=== PATIENT | female | born 2000 | race Caucasian/White ===

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

== ENCOUNTER 2023-08-01 06:30 | Inpatient (IN) | payer BC ==
[~2023-08-01] VITALS: Ht 156.2 cm; Wt 115.2 kg
[~2023-08-01 06:30] MED LIST changes: +BENADRYL ALLERG25 MG PO; +CLARITIN10 MG PO; +SKYRIZI150 MG/1 M SUB-Q; +TAMIFLU75 MG PO
[2023-08-01 10:07] LABS: AMNISURE ROM TEST POSITIVE
[2023-08-01] MEDS ORDERED: OXYTOCIN/DEXTROSE 5% 20 UNITS/100 ML BAG IV SCH (10:30)
[2023-08-01] MEDS ORDERED: MAGNESIUM HYDROXIDE/AL HYDROX 30 ML CUP PO PRN (10:30)
[2023-08-01] MEDS ORDERED: CALCIUM CARBONATE 500 MG CHEW PO PRN (10:30)
[2023-08-01] MEDS ORDERED: LACTATED RINGER'S 1,000 ML IV PRN (10:30)
[2023-08-01 10:51] LABS: HEMATOCRIT 40.6 % (35.0-50.0); HEMOGLOBIN 13.6 g/dL (12.0-18.0); MCH 29.5 (27-36); MCHC 33.4 g/dl (30-36); MCV 88.2 fl (81-99); RBC 4.6 M/ul (4.3-5.7); RDW 13.2 (10.5-15.0)
[2023-08-01 11:07] VITALS: BP 122/74
[2023-08-01 11:11] LABS: AMPHETAMINES, URINE NEGATIVE (NEGATIVE); BARBITURATES, URINE NEGATIVE (NEGATIVE); BENZODIAZEPINE, URINE NEGATIVE (NEGATIVE); BUPRENORPHINE, URINE NEGATIVE (NEGATIVE); CANNABINOID, URINE POSITIVE (NEGATIVE); COCAINE, URINE NEGATIVE (NEGATIVE); ECSTASY, URINE NEGATIVE (NEGATIVE); FENTANYL, URINE NEGATIVE (NEGATIVE); METHADONE, URINE NEGATIVE (NEGATIVE); OPIATES, URINE NEGATIVE (NEGATIVE); OXYCODONE, URINE NEGATIVE (NEGATIVE); PHENCYCLIDINE, URINE NEGATIVE (NEGATIVE)
[2023-08-01 11:24] LABS: ABO O; RH POSITIVE
[2023-08-01 11:25] LABS: ANTIBODY SCREEN NEGATIVE
[2023-08-01] MEDS ORDERED: ROPIVACAINE 0.2% 200 ML BAG ONE (12:23)
[2023-08-01] MEDS ORDERED: LACTATED RINGER'S 500 ML IV PRN (13:15)
[2023-08-01] MEDS ORDERED: ePHEDrine sulfate 5 MG/ML SYRINGE IV PRN (13:15)
[2023-08-01] MEDS ORDERED: ROPIVACAINE 0.2% 200 ML BAG EPIDURAL SCH (13:15)
[2023-08-01] MEDS ORDERED: LACTATED RINGER'S 2,000 ML IV ONE (13:15)
--- NOTE | 2023-08-01 14:22 | PR ---
[facility] [address] [facility] [place] [address] Signed Progress Notes IP Datetime Report Generated by RAMBO: 08/01/2023 14:22 PROGRESS NOTES: [id number] Impression: Non-reassuring Heart Rate Procedures: Intrauterine Pressure Catheter; Scalp Electrode Plan: Continue Present Management VITAL SIGNS: [id number] Vital Signs: Reviewed; Within Normal Limits EXAM: [id number] Dilatation: 4.0 Effacement: 80 Station: -2 Contractions: not picking up well MEMBRANES: [id number] Amniotic Fluid Color: Clear Comments: Comfortable after epidural. Frequent lates and difficult to monitor contractions. IUP and FSE placed. Will continue top closely monitor as it is unclear if baby will tolerate the contractions needed for progress. FETUS A: [id number] FHR Baseline: 140 Variability: Moderate 6-25bpm Accelerations: 15X15 Decelerations: Late FHR Category: Category II Presentation: Vertex Comments on Fetus A: No sign of metabolic acidosis FETUS B: [id number] Signing Physician: Susan Rahman MD Copies: ~ *Electronically Signed* 08/01/23 1422 SUSAN RAHMAN MD PATIENT NAME: DEVIN CUNNINGHAM PROGRESS NOTE DATE OF : 98 PHYSICIAN: SUSAN RAHMAN MD RPT #: [id number] REPORT IS CONFIDENTIAL AND NOT TO BE RELEASED WITHOUT AUTHORIZATION
--- NOTE | 2023-08-01 14:28 | PR ---
[facility] [address] [facility] [place], [place] [address] Signed Progress Notes IP Datetime Report Generated by CPRocío: 08/01/2023 14:28 PROGRESS NOTES: [id number] Impression: Reassuring Heart Rate Procedures: Intrauterine Pressure Catheter; Scalp Electrode Plan: Augmentation VITAL SIGNS: [id number] Vital Signs: Reviewed; Within Normal Limits EXAM: [id number] Dilatation: 4.0 Effacement: 80 Station: -2 Contractions: not picking up well MEMBRANES: [id number] Amniotic Fluid Color: Clear Comments: Baby doing better in current position but contractions inadequate. Will try low dose pitocin and see how baby tolerates the stronger contractions. Delivery route uncertain at this time. FETUS A: [id number] FHR Baseline: 140 Variability: Moderate 6-25bpm Accelerations: 15X15 Decelerations: Variable FHR Category: Category II Presentation: Vertex Comments on Fetus A: No sign of metabolic acidosis FETUS B: [id number] Signing Physician: Susan Rahman MD Copies: ~ *Electronically Signed* 08/01/23 1428 SUSAN RAHMAN MD PATIENT NAME: DEVIN CUNNINGHAM PROGRESS NOTE DATE OF : 98 PHYSICIAN: SUSAN RAHMAN MD RPT #: [id number] REPORT IS CONFIDENTIAL AND NOT TO BE RELEASED WITHOUT AUTHORIZATION
[2023-08-01] MEDS ORDERED: OXYTOCIN/0.9 % SODIUM CHLORIDE 500 ML IV SCH ×2 (14:30→17:00)
[2023-08-01] MEDS ORDERED: LIDOCAINE HCL 2% 5 ML SDV ONE (15:09)
[2023-08-01] MEDS ORDERED: SODIUM CHLORIDE 0.9% 20 ML IV ONE ×2 (15:09→15:37)
[2023-08-01] MEDS ORDERED: dexmedeTOMIDine HCl 200 MCG/2 ML VIAL ONE (15:09)
[2023-08-01] MEDS ORDERED: SOD+POT BICARB/CITRIC ACID 2 EA TABLET.EFF PO ONE (15:30)
[2023-08-01] MEDS ORDERED: CEFAZOLIN SODIUM 3 GM/30 ML SYR IV SCH (15:31)
[2023-08-01] MEDS ORDERED: OXYTOCIN 10 UNITS/ML VIAL ONE (15:31)
[2023-08-01] MEDS ORDERED: MORPHINE SULFATE 1 MG/ML VIAL ONE (15:34)
[2023-08-01] MEDS ORDERED: PHENYLEPHRINE HCL 10 MG/ML VIAL ONE (15:36)
[2023-08-01] MEDS ORDERED: ePHEDrine sulfate 50 MG/ML AMP ONE (15:36)
[2023-08-01] MEDS ORDERED: fentaNYL citrate 100 MCG/2 ML VIAL ONE (15:36)
[2023-08-01] MEDS ORDERED: TERBUTALINE SULFATE 1 MG/ML AMP SUB-Q ONE (15:45)
[2023-08-01] MEDS ORDERED: CEFAZOLIN SOD 1,000 MG/10 ML VIAL ONE (15:55)
[2023-08-01] MEDS ORDERED: TRANEXAMIC ACID IN NACL,ISO-OS 100 ML IV ONE (15:55)
[2023-08-01] MEDS ORDERED: DEXAMETHASONE SOD PHOS 4 MG/ML VIAL ONE (16:01)
[2023-08-01] MEDS ORDERED: ondansetron HCL 4 MG/2 ML VIAL ONE (16:01)
[2023-08-01] MEDS ORDERED: LACTATED RINGER'S 1,000 ML IV ONE (16:46)
[2023-08-01] MEDS ORDERED: TRANEXAMIC ACID 1,000 MG/10 ML AMP ONE (16:59)
[2023-08-01] MEDS ORDERED: CEPHALEXIN MONOHYDRATE 500 MG CAP PO SCH (17:00)
[2023-08-01] MEDS ORDERED: METOCLOPRAMIDE HCL 10 MG/2 ML SDV IV PRN (17:00)
[2023-08-01] MEDS ORDERED: PROCHLORPERAZINE EDISYLATE 10 MG/2 ML VIAL IV PRN (17:00)
[2023-08-01] MEDS ORDERED: PROMETHAZINE HCL 25 MG TAB PO PRN (17:00)
[2023-08-01] MEDS ORDERED: bisacodyL 10 MG SUPP PR PRN (17:00)
[2023-08-01] MEDS ORDERED: PROMETHAZINE HCL 25 MG SUPP PR PRN (17:00)
[2023-08-01] MEDS ORDERED: ondansetron HCL 4 MG/2 ML VIAL IV PRN ×3 (17:00→17:30)
[2023-08-01] MEDS ORDERED: LIDOCAINE 2% VISCOUS 6 ML SYR TOP ONE (17:00)
[2023-08-01] MEDS ORDERED: OXYCODONE HCL 5 MG TAB PO PRN (17:00)
[2023-08-01] MEDS ORDERED: LACTATED RINGER'S 1,000 ML IV SCH (17:04)
[2023-08-01] MEDS ORDERED: propofoL 200 MG/20 ML VIAL ONE (17:05)
[2023-08-01] MEDS ORDERED: diphenhydrAMINE HCL 50 MG/ML VIAL IV PRN ×2 (17:30)
[2023-08-01] MEDS ORDERED: IBLOOD GLUCOSE TEST STRIP 1 EA TEST VI PRN (17:30)
[2023-08-01] MEDS ORDERED: NALOXONE HCL 0.4 MG SYR IV PRN ×2 (17:30)
[2023-08-01] MEDS ORDERED: droPERidol 5 MG/2 ML VIAL IV PRN (17:30)
[2023-08-01] MEDS ORDERED: HYDROmorphone HCL 1 MG/ML SYR IV PRN (17:30)
[2023-08-01] MEDS ORDERED: fentaNYL citrate 50 MCG/ML SDV IV PRN (17:30)
[2023-08-01] MEDS ORDERED: MORPHINE SULFATE 4 MG/ML VIAL IV PRN (17:30)
[2023-08-01 17:33] LABS: BASOPHILS 0.1 % (0-2); HEMATOCRIT 37.2 % (35.0-50.0); HEMOGLOBIN 12.2 g/dL (12.0-18.0); LYMPHOCYTES 5.3 % (24-44); MCH 29.5 (27-36); MCHC 32.9 g/dl (30-36); MCV 89.6 fl (81-99); MONOCYTES 4.1 % (0-12); NEUTROPHILS 90.5 % (39-80); PLATELET COUNT 223 K/uL (140-440); RBC 4.15 M/ul (4.3-5.7); RDW 13.5 (10.5-15.0)
[2023-08-01 17:50] VITALS: BP 117/55
--- NOTE | 2023-08-01 17:57 | NUR ---
08/01/23 1757 Gerri Jiang 170Benji PT ARRIVED TO ROOM 101 WITH FBC RN AND FAMILY AT BEDSIDE. PT SHAKING AND HR 125-135. LACE FINISHER AWARE. PT DENEIS CONCERNS SUCH PAIN OR NAUSEA. IV IN LEFT WRIST AND INFUSING LR WITH 20 PIT AND SITE WNL. 1715 MD AWARE OF HR AND LABS ORDERED. HOB INCREASED SLIGHTLY. PT CONTINUES TO DENY CONCERNS. 1720 LAB AT BEDSIDE. PT SIPPING SMALL AMOUNT OF WATER. PT DENIES HOLDING BABY "I AM TOO SHAKEY." EDUCATION GIVEN ON MEDICATION AND SHAKING SIDE AFFECT. 1735 REPORT TO FBC RN. PT HR SLOW STARTING TO DECREASE AND SHAKING HAS DECREASED. BED PLUGGED IN AND BABY TO CHEST WITH FBC RN. ALL QUESTIONS ANSWERED.
[2023-08-01] MEDS ORDERED: SIMETHICONE 125 MG TABLET CHEWABLE PO SCH (21:00)
[2023-08-01] MEDS ORDERED: ACETAMINOPHEN 500 MG TAB PO SCH ×3 (21:00→22:00)
[2023-08-01] MEDS ORDERED: SENNOSIDES/DOCUSATE 1 EA TAB PO SCH (21:00)
[2023-08-01] MEDS ORDERED: metroNIDAZOLE 250 MG TAB PO SCH (21:00)
[2023-08-01] MEDS ORDERED: KETOROLAC TROMETHAMINE 30 MG/ML VIAL IV SCH (22:00)
[2023-08-01] MEDS ORDERED: IBUPROFEN 800 MG TAB PO SCH (22:00)
[2023-08-02] MEDS ORDERED: KETOROLAC TROMETHAMINE 30 MG/ML VIAL IV SCH (01:00)
[2023-08-02 06:12] LABS: HEMATOCRIT 32.2 % (35.0-50.0); HEMOGLOBIN 10.9 g/dL (12.0-18.0); MCH 29.9 (27-36); MCHC 33.8 g/dl (30-36); MCV 88.4 fl (81-99); RBC 3.64 M/ul (4.3-5.7); RDW 13.4 (10.5-15.0)
[2023-08-02] MEDS ORDERED: ENOXAPARIN SODIUM 40 MG/0.4 ML SYR SUB-Q SCH (09:00)
[2023-08-02] MEDS ORDERED: TRANEXAMIC ACID IN NACL,ISO-OS 1,000 MG/100 ML PIGGYBACK IV ONE (10:30)
--- NOTE | 2023-08-02 11:13 | PR ---
[facility] [address] [place], [place] [address] Signed PP Progress Notes Datetime Report Generated by RAMBO: 08/02/2023 11:13 SUBJECTIVE: [id number] Pain: Within Normal Limits Nausea/Vomiting: Denies Flatus: Yes Bowel Movement: Yes Vital Signs: [id number] Vital Signs: Reviewed; Within Normal Limits Cardiovascular: Not Done Respiratory: Not Done Abdomen/Uterus: Normal Lochia: Normal Vulva/Perineum: Not Done Breasts: Not Done CVA Tenderness: Not Done Extremities: Normal Incision: Normal Progress: Normal IMPRESSION/PLAN/PROCEDURES: [id number] Impression: Normal Progression Plan: Continue Present Management Procedures: None Progress Notes: S: 22 yo s/p primary section. POD/PPD#1. Doing well. Denies CLINTON, CP, SOB, F/C, N/V, RUQ pain, changes in vision, vaginal discharge. Tolerating regular diet, ambulating, pain controlled. Bnada removed this morning not long ago. Has not yet voided on own. O: AFVSS Abd: Soft. Non-distended. Fundus firm. Incision C/I. Normal amount of drainage. Vikas in place. Musc: FERRARI. No C/C/E. A/P: 22 yo s/p primary section. POD/PPD#1. Doing well. Will continue /postop care. Assess voiding ability and if no void after 4-6 hours, bladder scan with potential straight cath. Disposition in house. Signing Physician: Giovany Luna MD *Electronically Signed* 08/02/23 1113 GIOVANY LUNA MD PATIENT NAME: DELMAPALOMODEVINCHEIKH GARVIN PROGRESS NOTE DATE OF : 98 PHYSICIAN: GIOVANY LUNA MD RPT #: [id number] REPORT IS CONFIDENTIAL AND NOT TO BE RELEASED WITHOUT AUTHORIZATION
[2023-08-03] MEDS ORDERED: IBUPROFEN 800 MG TAB PO SCH ×2 (01:00→06:00)
--- NOTE | 2023-08-03 08:32 | PR ---
[facility] [address] [facility] [place], [place] [address] Signed PP Progress Notes Datetime Report Generated by RAMBO: 08/03/2023 08:32 SUBJECTIVE: [id number] Pain: Within Normal Limits Nausea/Vomiting: Denies Flatus: Yes Bowel Movement: Yes Vital Signs: [id number] Vital Signs: Reviewed; Within Normal Limits Cardiovascular: Normal Respiratory: Not Done Abdomen/Uterus: Abnormal Lochia: Normal Vulva/Perineum: Not Done Breasts: Not Done CVA Tenderness: Not Done Extremities: Normal Incision: Normal Progress: Normal Exam Comments: Fundus firm, NT @ U-2. IMPRESSION/PLAN/PROCEDURES: [id number] Impression: Normal Progression Plan: Discharge Procedures: None Progress Notes: Doing well. She is ready for D/C. Signing Physician: Susan Rahman MD Copies: ~ *Electronically Signed* 08/03/23831 SUSAN RAHMAN MD PATIENT NAME: DEVIN CUNNINGHAM PROGRESS NOTE DATE OF : 98 PHYSICIAN: SUSAN RAHMAN MD RPT #: [id number] REPORT IS CONFIDENTIAL AND NOT TO BE RELEASED WITHOUT AUTHORIZATION
--- NOTE | 2023-08-10 07:36 | OR ---
[facility] [address] [place], [place] [address] Signed DATE OF OPERATION: 08/01/2023 SURGEON: Susan Rahman MD SCREEN REPAIRER CRUSHER: Giovany Luna PREOPERATIVE DIAGNOSIS: Non-reassuring status. POSTOPERATIVE DIAGNOSIS: Non-reassuring status. PROCEDURE: Primary section, low segment transverse uterine incision. ANESTHESIA: Spinal. ESTIMATED BLOOD LOSS: 700 mL. DRAINS: Banda catheter. INDICATIONS AND FINDINGS: The patient is a 22-year-old female 2, para 0, AB 1, who was admitted at 38 and 1/7th weeks in early active labor with spontaneous rupture of membranes. She had clear fluid at rupture. She progressed to 4 cm, but unfortunately developed recurrent late decelerations as well as prolonged deceleration despite multiple position changes. Because of this, she was counseled and taken to the operating room for a primary section. She was delivered of a little girl via lower segment transverse uterine incision with Apgars of 8 and 9 and weight of 6 pounds 5 ounces. The baby was ROP. The uterus, tubes, ovaries, and placenta appeared normal. There was a cord at the ear level on the baby. PROCEDURE IN DETAIL: The patient was prepped and draped in the supine position. A Pfannenstiel skin incision was made, carried down through the fascia. The incision was extended laterally. The inferior and superior fascial flaps were then created. The muscles were bluntly Electronically Signed By: SUSAN RAHMAN MD 08/10/23 0736 PATIENT NAME: DEVIN CUNNINGHAM OPERATIVE REPORT DATE OF : 98 REPORT #: [id number] PHYSICIAN: SUSAN RAHMAN MD PCP: TISH ARENAS REPORT IS CONFIDENTIAL AND NOT TO BE RELEASED WITHOUT AUTHORIZATION [facility] [address] [place], [place] [address] Signed divided. The peritoneum opened bluntly and the incision extended bluntly. The Keyur retractor was placed. The uterine incision was made at the upper aspect of the peritoneal reflection. The incision was extended bluntly. The baby was delivered with the above findings and handed off to the pediatric staff in attendance. The placenta was removed manually and the uterus explored with a lap tape assuring no remaining fragments. The edges of the incision were identified and the uterus was closed in 2 layers using 0 Monocryl. The first layer was a running locking stitch. The 2nd was a vertical imbricating stitch. Additional sutures were required near the left angle for control of bleeding and these stitches controlled the uterine vessels. The abdomen was copiously irrigated, inspected and bleeding points on the peritoneum were controlled with cautery. The retractor was removed and the peritoneum identified. Monica was sprinkled over the uterine incision to further aid in hemostasis. The peritoneum was closed with a running suture of 3-0 Vicryl. The muscles were brought together with interrupted sutures of 0 Vicryl. Quite a bit of time was spent controlling bleeding points on the muscles. There were several bleeding points, which required [id number]-[id number] sutures of 0 Vicryl near the upper aspect of the superior fascial dissection. This area was irrigated, inspected and bleeding points appeared to be controlled. Monica powder was sprinkled over this muscle layer to further aid in hemostasis as well. The fascia was closed from each angle to midline with a running suture of 0 Vicryl. Subcu space was inspected and bleeding points controlled with cautery. Monica was sprinkled over the deep space to further control bleeding. The deep space was closed with interrupted sutures of 3-0 Vicryl. The skin was closed with adithya. All sponge and needle counts were correct. She tolerated the procedure well and was taken to the recovery room in good condition. Susan Rahman MD PJW/MODL /[id number] Copies: ~ Electronically Signed By: SUSAN RAHMAN MD 08/10/23 0736 PATIENT NAME: DEVIN CUNNINGHAM OPERATIVE REPORT DATE OF : 98 REPORT #: [id number] PHYSICIAN: SUSAN RAHMAN MD PCP: TISH ARENAS REPORT IS CONFIDENTIAL AND NOT TO BE RELEASED WITHOUT AUTHORIZATION
== END 2023-08-03 10:36 | disposition home or self-care (01) | DRG 788 ==
LOC: FBCO 06:30 → FBC 10:12
PROVIDERS: Obstetrics & Gynecology; ADMIT Obstetrics & Gynecology; ATTEND Obstetrics & Gynecology
PROC: 4A033R1 Measurement of Arterial Saturation, Peripheral, Percutaneous Approach (ICD-10-PCS; 2023-08-01)
PROC: 10H07YZ Insertion of Other Device into Products of Conception, Via Natural or Artificial Opening (ICD-10-PCS; 2023-08-01)
PROC: 10D00Z1 Extraction of Products of Conception, Low, Open Approach (ICD-10-PCS; principal; 2023-08-01 16:11)
DX: O76 Abnormality in fetal heart rate and rhythm complicating labor and delivery (principal); Z3A.38 38 weeks gestation of pregnancy; Z37.0 Single live birth
CPT/HCPCS: 01961; 36415; 59025; 80307; 82803; 84112; 85025; 85027; 85060; 86850; 86900; 86901; A9270; G0463; J0690; J1100; J1200; J1650; J1885; J2001; J2274; J2371; J2405; J2590; J2704; J2795; J3010; J3105; J7121

== ENCOUNTER 2023-10-25 03:05 | Observation (INO) | payer BC, OTHER ==
[2023-10-25] VITALS (7 sets, daily range): BP systolic 117–138; BP diastolic 62–72
[~2023-10-25] VITALS: Ht 152.4 cm; Wt 117.8 kg
[2023-10-25] MEDS ORDERED: ondansetron HCL 4 MG/2 ML VIAL IV ONE (03:30)
[2023-10-25] MEDS ORDERED: FAMOTIDINE 20 MG/ 2 ML VIAL IV ONE (03:30)
[2023-10-25] MEDS ORDERED: LACTATED RINGER'S 1,000 ML IV ONE ×2 (03:30→10:49)
[2023-10-25 03:43] LABS: BASOPHILS 0.6 % (0-2); EOSINOPHILS 4.2 % (0-6); HEMATOCRIT 38.4 % (35.0-50.0); HEMOGLOBIN 12.8 g/dL (12.0-18.0); LYMPHOCYTES 29.3 % (24-44); MCH 29.1 (27-36); MCHC 33.4 g/dl (30-36); MCV 87.4 fl (81-99); MONOCYTES 6.1 % (0-12); NEUTROPHILS 59.8 % (39-80); PLATELET COUNT 241 K/uL (140-440); RBC 4.39 M/ul (4.3-5.7); RDW 16.1 (10.5-15.0)
[2023-10-25 03:56] LABS: ALBUMIN 3.2 g/dL (3.4-5.0); ALBUMIN/GLOBULIN RATIO 0.89 (1.1-2.4); ANION GAP 11.5 (7-21); BILIRUBIN, TOTAL 0.4 ng/dL (0.2-1.0); BUN/CREATININE RATIO 11.66 (6.0-28.6); CALCIUM 8.6 mg/dL (8.5-10.1); CREATININE, SERUM 0.6 mg/dL (0.55-1.02); POTASSIUM 3.5 mmol/L (3.5-5.1); PROTEIN, TOTAL 6.8 g/dL (6.4-8.2)
[2023-10-25 04:21] LABS: BILIRUBIN, URINE NEGATIVE (negative); BLOOD/HGB, URINE NEGATIVE (Negative); KETONE, URINE NEGATIVE (Negative); LEUK ESTERASE, URINE SMALL (negative); NITRITE, URINE NEGATIVE (negative); PH, URINE 7.5 (5-7)
[2023-10-25 04:41] LABS: BACTERIA, URINE 1+ /hpf (negative); CRYSTALS, URINE AMORPHOUS PHOSPH 2+ (0-1+); EPITHELIAL CELLS, URINE SQUAMOUS 2+ /lpf (0-1+)
[2023-10-25 04:42] LABS: CASTS, URINE NONE SEEN \\lpf; COLLECTION TYPE, URINE CLEAN CATCH; REFLEX CULTURE, URINE No (No)
[2023-10-25] MEDS ORDERED: KETOROLAC TROMETHAMINE 30 MG/ML VIAL IV ONE (05:00)
[2023-10-25] MEDS ORDERED: CEFTRIAXONE/SODIUM CHLORIDE 2 GM/100 ML PIGGYBACK IV ONE (06:00)
[2023-10-25] MEDS ORDERED: ondansetron HCL 4 MG/2 ML VIAL IV PRN ×3 (06:15→13:45)
[2023-10-25] MEDS ORDERED: KETOROLAC TROMETHAMINE 30 MG/ML VIAL IV PRN (06:15)
[2023-10-25] MEDS ORDERED: LACTATED RINGER'S 1,000 ML IV SCH (06:15)
[2023-10-25] MEDS ORDERED: MORPHINE SULFATE 10 MG/ML VIAL IV PRN ×2 (06:15→13:45)
--- NOTE | 2023-10-25 07:15 | NUR ---
BEDSIDE REPORT RECEIVED FROM FAZAL RN AND CLARISSA CRUZ. PT RESTS IN BED, AWAKE AND ALERT, MOTHER AT BEDSIDE. CALL LIGHT IN REACH. IV INFUSING AT THIS TIME, NO LEAKING OR SWELLING NOTED. NO REQUESTS AT THIS TIME. PT ENCOURAGED TO USE CALL LIGHT.
[2023-10-25] MEDS ORDERED: DEXTROSE 5% - LACTATED RINGERS 1,000 ML IV SCH (07:30)
[2023-10-25] MEDS ORDERED: HYDROCODONE/APAP 10/325 1 TAB PO PRN (07:30)
[2023-10-25] MEDS ORDERED: PROCHLORPERAZINE EDISYLATE 10 MG/2 ML VIAL IV PRN ×2 (07:30→13:45)
[2023-10-25] MEDS ORDERED: HYDROmorphone HCL 1 MG/ML SYR IV PRN (07:30)
[2023-10-25] MEDS ORDERED: ACETAMINOPHEN 325 MG TAB PO PRN (07:30)
[2023-10-25] MEDS ORDERED: ACETAMINOPHEN 650 MG SUPP PR PRN (07:30)
[2023-10-25] MEDS ORDERED: ENOXAPARIN SODIUM 40 MG/0.4 ML SYR SUB-Q SCH (09:00)
[2023-10-25] MEDS ORDERED: PANTOPRAZOLE SODIUM 40 MG/10 ML VIAL IV SCH ×2 (09:00)
[2023-10-25] MEDS ORDERED: FAMOTIDINE 20 MG/ 2 ML VIAL IV SCH (09:00)
[2023-10-25] MEDS ORDERED: CEFTRIAXONE/SODIUM CHLORIDE 2 GM/100 ML PIGGYBACK IV SCH (09:00)
--- NOTE | 2023-10-25 09:04 | NUR ---
WHEN I WENT IN THIS MORNING TO DO THE UP DATE THE WHITE BOARD PATIENT WAS RESTING ASKED HER IF THERE WAS ANYTHING SHE NEEDED AND SHE SAID NOT AT THIS TIME.
[2023-10-25] MEDS ORDERED: iopamidoL 30 ML VIAL ONE (10:01)
[2023-10-25] MEDS ORDERED: SODIUM CHLORIDE 0.9% 40 ML IV ONE (10:02)
[2023-10-25] MEDS ORDERED: LIDOCAINE HCL 1% 30 ML SDV ONE (10:07)
[2023-10-25] MEDS ORDERED: propofoL 200 MG/20 ML VIAL ONE (10:49)
[2023-10-25] MEDS ORDERED: SUCCINYLCHOLINE IN 0.9% NACL 200 MG/10 ML SYRINGE ONE (10:49)
[2023-10-25] MEDS ORDERED: MIDAZOLAM HCL 2 MG/2 ML VIAL ONE (10:49)
[2023-10-25] MEDS ORDERED: fentaNYL citrate 100 MCG/2 ML VIAL ONE (10:49)
[2023-10-25] MEDS ORDERED: SUGAMMADEX SODIUM 200 MG/2 ML ML ONE (10:49)
[2023-10-25] MEDS ORDERED: ondansetron HCL 4 MG/2 ML VIAL ONE (10:49)
[2023-10-25] MEDS ORDERED: KETOROLAC TROMETHAMINE 30 MG/ML VIAL ONE (10:49)
[2023-10-25] MEDS ORDERED: DEXAMETHASONE SOD PHOS 4 MG/ML VIAL ONE (10:49)
[2023-10-25] MEDS ORDERED: FAMOTIDINE 20 MG/ 2 ML VIAL ONE (10:49)
[2023-10-25] MEDS ORDERED: METOCLOPRAMIDE HCL 10 MG/2 ML SDV ONE (10:49)
[2023-10-25] MEDS ORDERED: ROCURONIUM BROMIDE 50 MG/5 ML SYR ONE (10:49)
[2023-10-25] MEDS ORDERED: LIDOCAINE HCL 4% 5 ML AMP ONE (10:50)
--- NOTE | 2023-10-25 11:30 | NUR ---
Spoke with Justice. She is waiting to go to [place]. Dr. Kapoor visited with her and was leaving as I arrived. Pt states she lives in an apartment with er 3 mo daughter and her fiance. Her mom will assist her as needed. Pt does not use any DME. She does not drive. Mom and MIL drive her to appts and to grocery shop. She and fiance share cooking and cleaning. Pt plans on dc to home after surgery. She denies any needs and denies any fiancial issues.
[2023-10-25] MEDS ORDERED: ETOMIDATE 40 MG/20 ML VIAL ONE (12:09)
--- NOTE | 2023-10-25 12:24 | NUR ---
PT LEAVES UNIT VIA KEEGAN, WITH CLARISSA CHISHOLM, TO SURGERY FOR PROCEDURE.
[2023-10-25] MEDS ORDERED: MORPHINE SULFATE 10 MG/ML VIAL ONE (13:29)
[2023-10-25] MEDS ORDERED: droPERidol 5 MG/2 ML VIAL IV PRN (13:45)
[2023-10-25] MEDS ORDERED: NALOXONE HCL 0.4 MG SYR IV PRN (13:45)
[2023-10-25] MEDS ORDERED: IBLOOD GLUCOSE TEST STRIP 1 EA TEST VI PRN (13:45)
[2023-10-25] MEDS ORDERED: METOCLOPRAMIDE HCL 10 MG/2 ML SDV IV PRN (13:45)
[2023-10-25] MEDS ORDERED: fentaNYL citrate 50 MCG/ML SDV IV PRN (13:45)
[2023-10-25] MEDS ORDERED: droPERidol 5 MG/2 ML VIAL ONE (13:48)
--- NOTE | 2023-10-25 14:34 | CONS ---
[facility] [address] [place], [place] [address] Signed DATE OF CONSULTATION: 10/25/2023 CHIEF COMPLAINT: Epigastric abdominal pain. HISTORY OF PRESENT ILLNESS: Justice is a 22-year-old obese female, who just had her baby by in July of 2023. She has been doing well in that regard. She is at home with the baby at this time. 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 She has been noticing epigastric abdominal pain with nausea and vomiting being quite significant in the last couple of days. She finally came to the emergency room for evaluation. Her vital signs are stable and her laboratory work was unremarkable except alkaline phosphatase was slightly up. Beta-hCG was negative. Ultrasound confirmed her gallstones with gallbladder wall thickening, but there was a negative Morrison sign and the common bile duct was only 3.2 mm in diameter. I have been asked to admit her as a general surgeon nail professional early this morning. She has received pain control along with some Rocephin and Flagyl and IV fluids. She has been doing fine throughout the morning. PAST MEDICAL HISTORY: Psoriasis and environmental allergies. PAST SURGICAL HISTORY: Includes in July of [address] Rahman. SOCIAL HISTORY: She does not smoke. She has a drink once in a while. Dr. Susan Rahman is her storeroom clerk. Graciela Calderon is her primary care provider. She prefers the [facility]. Marianne Mcallister is her significant other at [phone]. FAMILY HISTORY: None. REVIEW OF SYSTEMS: She had 10 systems reviewed and there were no new additions. ALLERGIES: Peanuts, citric acid, corn, gluten, soya beans, tomatoes, tree nuts, but no known drug allergies. MEDICATIONS: Claritin, Benadryl, and Skyrizi. PHYSICAL EXAMINATION: Electronically Signed By: LAURA KAPOOR MD 10/25/23 1434 PATIENT NAME: JUSTICE CUNNINGHAM CONSULTATION DATE OF : 98 REPORT #: [id number] PHYSICIAN: LAURA KAPOOR MD PCP: GRACIELA CALDERON REPORT IS CONFIDENTIAL AND NOT TO BE RELEASED WITHOUT AUTHORIZATION [facility] [address] [place], [place] [address] Signed VITAL SIGNS: Her blood pressure is 130/71, heart rate 67, respiratory rate 20, temperature is 97.8. She is 96% to 100% on room air. She is 5 feet tall at 117 kg with a body mass index of 50. GENERAL: Justice is a 22-year-old female, lying supine in our hospital bed, watching TV. She is in no acute distress. She is not jaundiced. LUNGS: Clear to auscultation bilaterally. HEART: Regular rate and rhythm without murmurs. ABDOMEN: Obese, soft, nontender. There is no palpable mass. LABORATORY DATA: Her white blood cell count is 6.1, hemoglobin 12, neutrophils 59. Electrolytes are unremarkable. UA negative. Total bilirubin 0.4, AST 25, ALT 37, alkaline phosphatase 128, albumin is 3.2, lipase is 34. Beta HCG is negative. RADIOGRAPHIC STUDIES: An ultrasound shows the gallstones and some gallbladder wall thickening, but no measurement given. Her common bile duct is 3.2 mm which is unremarkable and there was a negative Morrison sign. ASSESSMENT AND PLAN: Justice is a 22-year-old obese female, who just had her 1st baby by in July of this year. She has been having attacks of epigastric abdominal pain and nausea and vomiting. The last couple of days were significantly worse. She decided to come to the emergency room. She is found to have cholelithiasis and gallbladder wall thickening. She has been admitted, given IV fluids and pain control along with some antibiotics. I have met with Justice and I have reviewed the above findings with her in detail. We also reviewed our brochure on the gallbladder. She understands the location and function of the gallbladder. We discussed laparoscopic versus open cholecystectomy. We also reviewed the expected intraop and postop course. There is risk including, but not limited to bleeding, infection, scarring, change in contour of the skin, damage to bowel, damage to main bile duct, incisional hernias and other unforeseen comorbidities. She has expressed understanding and would like to proceed. Laura Kapoor MD ALB/MODL /[id number] Electronically Signed By: LAURA KAPOOR MD 10/25/23 1434 PATIENT NAME: JUSTICE CUNNINGHAM CONSULTATION DATE OF : 98 REPORT #: [id number] PHYSICIAN: LAURA KAPOOR MD PCP: GRACIELA CALDERON REPORT IS CONFIDENTIAL AND NOT TO BE RELEASED WITHOUT AUTHORIZATION [address] [place], [place] [address] Signed cc: MD Susan Gates MD Copies: LAURA KAPOOR MD, PATRICIA J MD ~ Electronically Signed By: LAURA KAPOOR MD 10/25/23 1434 PATIENT NAME: JUSTICE CUNNINGHAM CONSULTATION DATE OF : 98 REPORT #: [id number] PHYSICIAN: LAURA KAPOOR MD PCP: GRACIELA CALDERON REPORT IS CONFIDENTIAL AND NOT TO BE RELEASED WITHOUT AUTHORIZATION
--- NOTE | 2023-10-25 15:09 | NUR ---
VISITED DURING SPIRITUAL CARE ROUNDS. PT GONE FOR PROCEDURE. MOTHER IN ROOM EXPRESSED CONFIDENCE IN CARE, HOPE FOR RELIEF OF DISCOMFORT. ANIMAL CRUELTY INVESTIGATOR PROVIDED SUPPORTIVE PRESENCE, HOSPITALITY, PRAYER. MOTHER EXPRESSED GRATITUDE.
--- NOTE | 2023-10-25 15:27 | NUR ---
PT RETURNS TO UNIT AT 1519 VIA GURNEY ESCORTED BY CLARISSA JURADO. BEDSIDE REPORT RECEIVED FROM CLARISSA JURADO. PT IS DROWSY UPON ARRIVAL, ROUSES EASILY TO VERBAL STIMULI. CONTINUOUS PULSE OXIMETER IN PLACE. SCDS IN PLACE TO BLE FROM TOES TO KNEE. PT REORIENTED TO ROOM AND CALL LIGHT. PT S/P LAP-CHOLECYSTECTOMY, OP-SITES X6 IN RLQ, RUQ AND EPIGASTRIC REGION. SMALL AMOUNT OF SHADOWING NOTED TO UPPER MOST EPIGASTRIC SITE AND MOST LATERAL SITE IN RUQ. DRESSING OTHERWISE C/D/I. HRR, LUNGS CLEAR. BT ACTIVE X LUQ, BT HYPOACTIVE X RLQ AND RUQ. PT DENIES NAUSEA OR PAIN AT THIS TIME. IV IN RAC PATENT.
--- NOTE | 2023-10-25 16:14 | NUR ---
PT REMAINS DROWSY, ROUSES EASILY TO VERBAL STIMULI. VSS. PT DENIES PAIN OR NAUSEA AT THIS.
--- NOTE | 2023-10-25 17:22 | NUR ---
PT SITS UP IN BED, EATS 30% OF MEAL, TOLERATES THIS WELL, DENIES NAUSEA. REPORTS PAIN IN ABDOMEN INCISIONS 7/, ACHING, NORCO RECEIVED ORDERED, SEE EMAR. BT REMAIN HYPOACTIVE IN LLQ, RLQ AND RUQ. DRESSING TO ABDOMEN REMAIN INTACT. ABDOMEN IS SOFT AND TENDER.
--- NOTE | 2023-10-25 17:33 | NUR ---
10/25/23 1733 [place] 1432- PT PRESENTS TO PACU, SEMI NUGENT POSITION. OPA IN PLACE, REQUIRING SIGNIFICANT JAW THRUST TO MAINTAIN AIRWAY. O2 AT 6L PER MASK. LR INFUSING TO RAC IV. DRESSINGS IN PLACE TO 6 LAP SITES ON ABD, CDI. ABD SOFT, NON DISTENDED. ALL MONITORS IN PLACE. ICE PLACED TO ABD. 1440- PT REACTIVE TO STIMULUS, RUBBING AT FACE AND MOVING IN BED. PT KEEPS EYES CLOSED, DOES NOT FOLLOW COMMANDS. PT FALLS BACK TO SLEEP AND IS ABLE TO MAINTAIN AIRWAY WITH OPA AND INTERMITTENT POSITIONING. 1446- PT REACTIVE TO STIMULUS, OPENS EYES BRIEFLY. PT TRYING TO SIT UP AND OUT OF BED, 2 RNS AT BEDSIDE TO KEEP PT IN BED. CONTINOUSLY REORIENTING AND REASSURING PT. O2 MASK REMOVED AT THIS TIME. PT GRABS OPA AND PULLS OUT AND THROWS ONTO BED. PT SHAKES HEAD WHEN ASKED IF A SIDE SLEEPER, ASSISTED TO RIGHT SIDE. PT FALLS BACK TO SLEEP. 1455- PT WAKES EASILY TO VERBAL STIMULI. BREATHING EVEN AND NON LABORED. REORIENTED TO TIME AND PLACE DUE TO PT LOOKING CONFUSED. PT DENIES PAIN AND NAUSEA. PT BACK TO RESTING. 1510- PT ROLLS FROM SIDE TO BACK ON OWN. PT AWAKE OFF AND ON BUT VERY DROWSY. PT CONTINUES TO DENY ANY PAIN OR NAUSEA. DRESSINGS TO MID UPPER ABD AND RUQ HAVE SMALL AMOUNT OF DRAINAGE BUT NOT SATURATED. ICE REMAINS IN PLACE. 1519- PT TAKEN BACK TO MED/SURG, REPORT TO AUBRIE ROMO AT BEDSIDE. DRESSINGS ASSESSED WITH AUBRIE. LR HANGING TKO TO RAC IV. PT WAKES EASILY TO VERBAL STIMULI, NO PAIN OR NAUSEA. NO SIGNS OF DISTRESS. BED PLUGGED IN LOWEST POSITION, MOM AT BEDSIDE, AUBRIE ROMO REMAINS AT BEDSIDE, CARE OF PT TURNED OVER AT THIS TIME.
--- NOTE | 2023-10-25 18:21 | NUR ---
VSS. PT REPORTS PAIN TOLERABLE AT THIS TIME, 3/10 INCISIONAL PAIN. DENIES NAUSEA. BT ACTIVE IN LUQ, LLQ AND RLQ. BT HYPOACTIVE IN RUQ. DRESSINGS TO ABDOMEN REMAIN INTACT.
[2023-10-25] MEDS ORDERED: HYDROCODON-ACE1 EAC8 PO (18:27)
--- NOTE | 2023-10-25 18:43 | NUR ---
PT DRESSES SELF, IV REMOVED BY YOLANDA WEI, PT TOLERATES THIS WELL. DISCUSSED DISCHARGE INSTRUCTIONS WITH PT AND PT'S MOTHER, BOTH VERBALIZE UNDERSTANDING. PT LEAVES UNIT VIA WHEELCHAIR ESCORTED BY YOLANDA WEI TO PRIVATE CAR DRIVEN BY MOTHER.
--- NOTE | 2023-10-26 06:33 | OR ---
[facility] [address], [place] [address] Signed DATE OF OPERATION: 10/25/2023 SURGEON: Laura Wade MD PREOPERATIVE DIAGNOSES: Acute on chronic cholecystitis and cholelithiasis. POSTOPERATIVE DIAGNOSES: Acute on chronic cholecystitis and cholelithiasis. PROCEDURE: Laparoscopic cholecystectomy with intraoperative cholangiogram. ESTIMATED BLOOD LOSS: None. FINDINGS: The intraoperative cholangiogram was unremarkable. Justice had one stone stuck at the junction of the gallbladder with the cystic duct. She had another stone on top of that. She also had some edema in her gallbladder wall and the gallbladder was starting to take on a maciej color. INDICATIONS: Justice is a 22-year-old female with a body mass index of 50. She just had her baby by in July of 2023. Everything has been going well. She has been having trouble with epigastric abdominal pain associated with nausea and vomiting. It got worse in the last couple of days. She came to the emergency room for evaluation. Her vital signs were fine. The labs were fine. The ultrasound showed the gallstones and the gallbladder wall thickening, but the common bile duct was unremarkable at 3.2 mm. I have been asked to admit her as a general surgeon on-call. She has received IV fluids along with Rocephin and Flagyl and pain control. I had met with Justice in the hospital earlier today. We reviewed the above findings. I gave her a brochure regarding the gallbladder. We went through it page by page. She understands the location and function of the gallbladder. She understands laparoscopic versus open cholecystectomy. We also reviewed the expected intraop and postop course. There is risk of surgery including, but not limited to gas bloating, crampy abdominal pain, bleeding, perforation requiring surgery, and missed diagnosis. She understands there is risk to the surgery including, but not limited to bleeding, infection, scarring, change in contour of the skin, damage to bowel, damage to main bile duct, incisional hernias and other unforeseen comorbidities. She had expressed understanding and wished to proceed. Electronically Signed By: LAURA WADE MD 10/26/23 0633 PATIENT NAME: JUSTICE CUNNINGHAM OPERATIVE REPORT DATE OF : [birth year] REPORT #: [id number] PHYSICIAN: LAURA WADE MD PCP: TISH ARENAS REPORT IS CONFIDENTIAL AND NOT TO BE RELEASED WITHOUT AUTHORIZATION [facility] [address], [place] [address] Signed PROCEDURE IN DETAIL: Justice was taken into our operating room and placed in the supine position under general endotracheal tube anesthesia. She was already on Rocephin and Flagyl. She had subcutaneous Lovenox. SCDs were utilized. She was prepped and draped in the usual sterile fashion. All trocars were placed in their usual positions under direct visualization of the camera without difficulty. The gallbladder was grasped and elevated in the right upper quadrant. We took pictures throughout for photodocumentation. Her gallbladder was moderately distended and it was edematous and the wall was indeed thickened. The gallbladder was taking on a maciej color. We had to bring in a 2nd nurse to introduce the fan retractor to get down to the area of the triangle of Calot. The area was carefully dissected free and we placed several clips on the cystic artery and it was divided. We put a clip on the distal side of the stone at the cystic duct where it was joining the gallbladder. We opened that area and we evacuated that stone in several pieces. We then removed that clip and we introduced our intraoperative cholangiocatheter. The intraoperative cholangiogram was unremarkable. There were no filling defects in the cystic duct or the common bile duct. The contrast flowed readily into the duodenum. The cystic duct stump was then secured with a PDS Endoloop. Two clips were placed across the cystic duct stump to delano its location. The cystic duct was then divided where it joins the gallbladder. The gallbladder was carefully removed from the gallbladder fossa with the help of the cautery and placed into an EndoCatch bag. The right upper quadrant was irrigated and suctioned out until clear. We used our laparoscopic suturing device to pass 0-Vicryl suture on either side of the fascia of the subxiphoid and the mid epigastric trocar sites. These were tied down to close the fascia primarily. After this, all the gas was allowed to escape and the remaining trocars were removed along with the gallbladder. The gallbladder was passed off to our circulating nurse for photodocumentation on the back table. She indeed had multiple yellow cholesterol stones and cholesterolosis. We then closed the fascia of the supraumbilical trocar site with interrupted [id number] and simple 0-Vicryl sutures. Local anesthetic was injected into all trocar sites. Each trocar site was irrigated and suctioned out until clear. We closed the dermis with interrupted 3-0 subcuticular and Monocryl sutures. We used Mastisol and one-half inch Steri-Strips to bring the skin together on each trocar site. Dry gauze and tape was applied over this. Justice was then awakened from her anesthesia, extubated in the OR, and taken to recovery room in stable condition. Laura Wade MD Electronically Signed By: LAURA WADE MD 10/26/23 0633 PATIENT NAME: JUSTICE CUNNINGHAM OPERATIVE REPORT DATE OF : [birth year] REPORT #: [id number] PHYSICIAN: LAURA WADE MD PCP: TISH ARENAS REPORT IS CONFIDENTIAL AND NOT TO BE RELEASED WITHOUT AUTHORIZATION [address] [address] Signed ALB/MODL /[id number] cc: MD Susan Clifton MD Dana Hampton, THEODORE Copies: LAURA WADE MD, PATRICIA J MD ~ Electronically Signed By: LAURA WADE MD 10/26/23 0633 PATIENT NAME: JUSTICE CUNNINGHAM OPERATIVE REPORT DATE OF : [birth year] REPORT #: [id number] PHYSICIAN: LAURA WADE MD PCP: TISH ARENAS-Kevin REPORT IS CONFIDENTIAL AND NOT TO BE RELEASED WITHOUT AUTHORIZATION
[2023-10-26] MEDS ORDERED: CEFTRIAXONE/SODIUM CHLORIDE 2 GM/100 ML PIGGYBACK IV SCH (09:00)
--- NOTE | 2023-10-28 13:07 | PATH ---
[facility] [address] [place], [place] [address] Signed SPECIMEN(S): A GALLBLADDER AND STONES SPECIMEN SOURCE: A. GALLBLADDER AND STONES CLINICAL HISTORY: Acute cholecystitis with cholelithiasis. FINAL PATHOLOGIC DIAGNOSIS: Gallbladder, cholecystectomy: - Chronic calculous cholecystitis BRP MICROSCOPIC EXAMINATION: Histologic sections of all submitted blocks are examined by light microscopy. These findings, together with the gross examination, support the pathologic diagnosis. GROSS DESCRIPTION: The specimen, labeled and designated "Bharat Cunningham, gallbladder and stones," is received in formalin and consists of Specimen: Previously open gallbladder. Dimensions: 8.0 x 3.5 x 1.4 cm. Serosa: Garten-gunter smooth congested glistening. Cystic Duct: Unobstructed. Calculi: Multiple yellow bosselated calculi measuring 2.5 x 2.0 x 0.5 cm in aggregate. Mucosa: Gunter velvety with yellow flecking. Wall thickness: 0.5 cm. Lymph node: No pericystic lymph nodes are grossly identified. Additional: Moderate amounts of brown bile. Pneumatic Tool Repairer sections are submitted in (A1). ELISEO (under the direct supervision of a pathologist) The Gross Description was prepared using a voice recognition system. The report was reviewed for accuracy; however, sound-alike word errors, addition and/or deletions may occur. If there is any question about this report, please contact Client Services. ADDITIONAL NOTES: Immunohistochemical and/or in situ hybridization studies if performed in this case included appropriate positive controls that reacted as expected. This PATIENT NAME: DEVIN CUNNINGHAM PATHOLOGY DATE OF : [birth year] REPORT #: [id number] PHYSICIAN: DARLIN MIKE PCP: TISH ARENAS REPORT IS CONFIDENTIAL AND NOT TO BE RELEASED WITHOUT AUTHORIZATION [facility] [address] [place] [id number] Signed test was developed and its performance characteristics determined by [facility]. It has not been cleared or approved by the U.S. Food and Drug Administration. The FDA has determined that such clearance or approval is not necessary. This test is used for clinical purposes. It should not be regarded as investigational or for research. [facility] is certified under the Clinical Laboratory Improvement Amendments of 1988 (CLIA) as qualified to perform high complexity clinical laboratory testing. PERFORMING LABORATORY: Technical component was performed by [facility], [address] [place] [id number] (CLIA# [id number]). Professional interpretation was performed by [facility], [address] [place] [id number] (CLIA# [id number]). Diagnostician: Amado Guillen MD Pathologist Electronically Signed 10/28/2023 Copies: ~ PATIENT NAME: DEVIN CUNNINGHAM PATHOLOGY DATE OF : [birth year] REPORT #: [id number] PHYSICIAN: DARLIN MIKE PCP: TISH ARENAS REPORT IS CONFIDENTIAL AND NOT TO BE RELEASED WITHOUT AUTHORIZATION
== END 2023-10-25 18:43 | disposition home or self-care (01) ==
LOC: ED 03:05 → MS 03:06
PROVIDERS: Internal Medicine; ADMIT Colon & Rectal Surgery; ATTEND Colon & Rectal Surgery
PROC: 0FT44ZZ Resection of Gallbladder, Percutaneous Endoscopic Approach (ICD-10-PCS; principal; 2023-10-25 12:00)
DX: K80.12 Calculus of gallbladder with acute and chronic cholecystitis without obstruction (principal); E66.9 Obesity, unspecified; Z68.43 Body mass index [BMI] 50.0-59.9, adult; L40.9 Psoriasis, unspecified; Z87.891 Personal history of nicotine dependence; Z79.899 Other long term (current) drug therapy; Z91.010 Allergy to peanuts; Z91.018 Allergy to other foods
CPT/HCPCS: 00790; 36415; 74300; 76705; 80053; 81001; 83690; 84703; 85025; 96361; 96365; 96367; 96372; 96375; 99285-25; A9270; G0378; J0330; J0696; J1100; J1650; J1790; J1885; J2250; J2270; J2405; J2470; J2704; J2765; J3010; J3490; J7121; Q9967

== ENCOUNTER 2024-01-03 09:49 | Emergency (ER) | payer BC, OTHER ==
[~2024-01-03] VITALS: Ht 152.4 cm; Wt 114.3 kg
[~2024-01-03 09:49] MED LIST changes: +HYDROCODON-ACE1 EAC8 PO
[2024-01-03] MEDS ORDERED: PANTOPRAZOLE SODIUM 40 MG/10 ML VIAL IV ONE (10:45)
[2024-01-03] MEDS ORDERED: SODIUM CHLORIDE 0.9% 1,000 ML IV PRN (10:45)
[2024-01-03] MEDS ORDERED: LIDOCAINE & ANTACID 35 ML BTL PO ONE (10:45)
[2024-01-03 10:58] LABS: BILIRUBIN, URINE NEGATIVE (negative); BLOOD/HGB, URINE SMALL (Negative); KETONE, URINE NEGATIVE (Negative); LEUK ESTERASE, URINE TRACE (negative); NITRITE, URINE NEGATIVE (negative)
[2024-01-03 10:59] LABS: BASOPHILS 0.1 % (0-2); EOSINOPHILS 4.4 % (0-6); HEMATOCRIT 39.6 % (35.0-50.0); HEMOGLOBIN 13.5 g/dL (12.0-18.0); LYMPHOCYTES 13.1 % (24-44); MCH 29.9 (27-36); MCV 87.9 fl (81-99); MONOCYTES 5.8 % (0-12); NEUTROPHILS 76.6 % (39-80); PLATELET COUNT 231 K/uL (140-440); RDW 14.8 (10.5-15.0)
[2024-01-03 11:07] LABS: BACTERIA, URINE NONE SEEN /hpf (negative); CASTS, URINE NONE SEEN \\lpf; COLLECTION TYPE, URINE CLEAN CATCH; CRYSTALS, URINE NONE SEEN (0-1+); EPITHELIAL CELLS, URINE SQUAMOUS 4+ /lpf (0-1+); RED BLOOD CELLS, URINE 0-1 /hpf (0-5); REFLEX CULTURE, URINE No (No)
[2024-01-03 11:14] LABS: ALBUMIN 3.3 g/dL (3.4-5.0); ALBUMIN/GLOBULIN RATIO 0.87 (1.1-2.4); ANION GAP 8.3 (7-21); BILIRUBIN, TOTAL 0.8 ng/dL (0.2-1.0); BUN/CREATININE RATIO 12.06 (6.0-28.6); CALCIUM 8.8 mg/dL (8.5-10.1); CREATININE, SERUM 0.58 mg/dL (0.55-1.02); POTASSIUM 3.3 mmol/L (3.5-5.1); PROTEIN, TOTAL 7.1 g/dL (6.4-8.2)
[2024-01-03] MEDS ORDERED: PROTONIX40 MG PO (12:36)
[2024-01-03] MEDS ORDERED: ONDANSETRON ODT8 MG PO (12:36)
[2024-01-03] MEDS ORDERED: POTASSIUM CHLORIDE 20 MEQ/15 ML CUP PO ONE (12:45)
[2024-01-03 13:09] VITALS: BP 123/78
== END 2024-01-03 12:45 | disposition home or self-care (01) ==
LOC: ED 09:49
PROVIDERS: Emergency Medicine
DX: R11.2 Nausea with vomiting, unspecified (principal); R10.12 Left upper quadrant pain; E87.6 Hypokalemia; Z87.891 Personal history of nicotine dependence; Z91.018 Allergy to other foods; Z91.010 Allergy to peanuts; Z79.899 Other long term (current) drug therapy
CPT/HCPCS: 36415; 80053; 81001; 83605; 83690; 84703; 85025; 96374; 99284-25; A9270; J2470; J7030

== ENCOUNTER 2024-12-24 08:07 | Emergency (ER) | payer OTHER ==
[~2024-12-24] VITALS: Ht 152.4 cm; Wt 113.1 kg
[~2024-12-24 08:07] MED LIST changes: +ONDANSETRON ODT8 MG PO; +PROTONIX40 MG PO
[2024-12-24] MEDS ORDERED: ENSKYCE1 EACH PO (08:19)
[2024-12-24] MEDS ORDERED: PANTOPRAZOLE SODIUM 40 MG/10 ML VIAL IV ONE (08:30)
[2024-12-24] MEDS ORDERED: SODIUM CHLORIDE 0.9% 1,000 ML IV ONE (08:30)
[2024-12-24] MEDS ORDERED: HYDROmorphone HCL 1 MG/ML SYR IV PRN (08:30)
[2024-12-24 08:34] LABS: BASOPHILS 0.3 % (0.1-1.2); EOSINOPHILS 2.3 % (0.7-5.8); LYMPHOCYTES 22.8 % (19.3-51.7); MCH 31.0 PG (25.6-32.2); MCHC 33.4 g/dL (32.2-35.5); MCV 92.8 fL (79.4-94.8); MONOCYTES 7.1 % (4.7-12.5); NEUTROPHILS 67.2 % (34.0-71.1); RBC 4.71 M/uL (3.93-5.22)
[2024-12-24 08:43] LABS: ALT (SGPT) 41.0 U/L (14-59); AST (SGOT) 14.0 U/L (15-37); GLOMERULAR FILTRATION RATE,EST 135.0 mL/min (>60); PROTEIN, TOTAL 6.9 g/dL (6.4-8.2); UREA NITROGEN 6.0 mg/dL (7-18)
[2024-12-24 09:00] LABS: BLOOD/HGB, URINE NEGATIVE (Negative); KETONE, URINE NEGATIVE (Negative); LEUK ESTERASE, URINE MODERATE (negative); NITRITE, URINE NEGATIVE (negative)
[2024-12-24 09:07] LABS: EPITHELIAL CELLS, URINE SQUAMOUS 3+ /lpf (0-1+)
[2024-12-24 09:08] LABS: BACTERIA, URINE 1+ /hpf (negative); CASTS, URINE NONE SEEN \\lpf; CRYSTALS, URINE AMORPHOUS URATES 1+ (0-1+); REFLEX CULTURE, URINE No (No)
[2024-12-24] MEDS ORDERED: HYDROCODON-ACE1 EA10 PO (09:17)
[2024-12-24] MEDS ORDERED: PROTONIX40 MG PO (09:17)
[2024-12-24] MEDS ORDERED: ONDANSETRON ODT8 MG PO (09:17)
[2024-12-24 09:26] VITALS: BP 114/75
== END 2024-12-24 09:26 | disposition home or self-care (01) ==
LOC: ED 08:07
PROVIDERS: Emergency Medicine
DX: K29.70 Gastritis, unspecified, without bleeding (principal); Z79.899 Other long term (current) drug therapy; Z91.010 Allergy to peanuts; Z91.018 Allergy to other foods; Z88.8 Allergy status to other drugs, medicaments and biological substances; Z87.891 Personal history of nicotine dependence
CPT/HCPCS: 36415; 80053; 81001; 83690; 84703; 85025; 96361; 96374; 96375; 99284-25; J1171; J2405; J2470; J7030